=== PATIENT | male | born 1950 | race Caucasian/White ===

== ENCOUNTER 2022-04-16 10:22 | Outpatient (CLI) | payer MEDICARE ==
[2022-04-16 12:06] LABS: Anion Gap 13 mmol/L (10-20); BUN (Urea Nitrogen) 18 mg/dL (8.4-25.7); Calc. Creatinine Clearance 0 mL/min (70-130); Calcium 9.3 mg/dL (7.8-10.44); Carbon Dioxide 24 mmol/L (23-31); Chloride 104 mmol/L (98-107); Estimated GFR 67; Glucose 99 mg/dL (83-110); Potassium 4.6 mmol/L (3.5-5.1); Sodium 136 mmol/L (136-145)
[2022-04-16 12:12] LABS: Mean Corpuscular Hemoglobin 32.6 pg (27.0-33.0); Mean Corpuscular Volume 93.2 fl (81.2-95.1); Mean Platelet Volume 10.8 fl (7.4-10.4); Platelet Count 206 10x3/uL (150-450); Red Blood Cell (RBC) Count 4.29 10x6/uL (4.32-5.72); White Blood Cell (WBC) Count 9.7 10x3/uL (3.5-10.5)
== END 2022-04-16 10:23 | disposition home or self-care (01) ==
LOC: LABBT 10:22
PROVIDERS: ATTEND Neurological Surgery
DX: Z01.818 Encounter for other preprocedural examination (principal); M54.16 Radiculopathy, lumbar region
CPT/HCPCS: 80048; 85027; 93005; 93010

== ENCOUNTER 2022-04-23 07:14 | Observation (INO) | payer MEDICARE ==
[2022-04-19 14:47] VITALS: BMI 35.5
[2022-04-23] MEDS ORDERED: CEFAZOLIN 2 GM VIAL ONE (08:26)
[2022-04-23] MEDS ORDERED: Lidocaine 1% MPF 2 ML VIAL ONE (08:26)
[2022-04-23] MEDS ORDERED: Sodium Chloride 0.9% 100 ML ONE (08:27)
[2022-04-23] MEDS ORDERED: Fentanyl 250 MCG/5 ML VIAL ONE (09:39)
[2022-04-23] MEDS ORDERED: Vancomycin 1 GM VIAL ONE (09:47)
[2022-04-23] MEDS ORDERED: SUGAMMADEX SODIUM 200 MG/2 ML VIAL ONE (09:48)
[2022-04-23] MEDS ORDERED: ePHEDrine 50 MG/ML VIAL ONE (10:41)
[2022-04-23] MEDS ORDERED: Ondansetron PF 4 MG/2 ML Vial ONE (10:41)
[2022-04-23] MEDS ORDERED: Dexamethasone 20 MG/5 ML VIAL ONE (10:41)
[2022-04-23] MEDS ORDERED: PROPOFOL 200 MG/20 ML VIAL ONE (10:41)
[2022-04-23] MEDS ORDERED: Rocuronium Bromide 10 MG/ML (10ML VIAL) ONE (10:41)
[2022-04-23] MEDS ORDERED: Mineral Oil Sterile 10 ML VIAL ONE (11:20)
[2022-04-23] MEDS ORDERED: Ondansetron PF 4 MG/2 ML Vial IVP PRN (11:40)
[2022-04-23] MEDS ORDERED: diphenhydrAMINE 25 MG CAP PO PRN (11:40)
[2022-04-23] MEDS ORDERED: Mag-Al 1200 mg/1200 mg/30 ML UDCUP PO PRN (11:40)
[2022-04-23] MEDS ORDERED: Cyclobenzaprine 10 MG TAB PO PRN (11:40)
[2022-04-23] MEDS ORDERED: Milk Of Magnesia 30 ML UDCUP PO PRN (11:40)
[2022-04-23] MEDS ORDERED: Promethazine 25 MG TAB PO PRN (11:40)
[2022-04-23] MEDS ORDERED: Morphine 2 MG/ML VIAL SLOW IVP PRN (11:40)
[2022-04-23] MEDS ORDERED: Dextrose 50% Abboject 50 ML SYRINGE SLOW IVP PRN (11:44)
[2022-04-23] MEDS ORDERED: Dextrose 5% in Water 1,000 ML IV PRN (11:44)
[2022-04-23] MEDS ORDERED: HYDROcodone/Acetaminophen 7.5/325 mg Tablet PO PRN ×2 (11:44)
[2022-04-23] MEDS ORDERED: HumaLOG 300 UNITS/3 ML VIAL SC PRN (11:44)
[2022-04-23] MEDS ORDERED: Promethazine HCl 25 MG/ML VIAL IM PRN (12:07)
[2022-04-23] MEDS ORDERED: Ondansetron HCl/PF 4 MG/2 ML Vial IVP PRN (12:07)
[2022-04-23] MEDS ORDERED: Tamsulosin HCl 0.4 MG CAP PO SCH (12:15)
[2022-04-23] MEDS ORDERED: Tamsulosin HCl 0.4 MG CAP ONE (12:29)
[2022-04-23] MEDS: traMADol HCl 50 MG TAB PO PRN ×2 (15:42→23:50)
[2022-04-23] MEDS: Sodium Chloride 0.9% 1,000 ML IV SCH (15:43)
[2022-04-23] MEDS: CEFAZOLIN 2 GM in Sodium Chloride 0.9% 100 ML IVPB SCH (17:24)
[2022-04-24] MEDS: CEFAZOLIN 2 GM in Sodium Chloride 0.9% 100 ML IVPB SCH (00:48)
[2022-04-24] MEDS: Sodium Chloride 0.9% 1,000 ML IV SCH (05:27)
[2022-04-24] MEDS: traMADol HCl 50 MG TAB PO PRN (05:29)
[2022-04-24] MEDS ORDERED: Levothyroxine Sodium 112 MCG TAB PO SCH (06:00)
[2022-04-24] MEDS ORDERED: Levothyroxine Sodium 25 MCG TAB PO SCH (06:00)
[2022-04-24] MEDS ORDERED: Tamsulosin HCl 0.4 MG CAP PO SCH (06:00)
[2022-04-24] MEDS ORDERED: Carvedilol 25 MG TAB PO SCH (08:00)
[2022-04-24 08:08] VITALS: BP 169/92; TEMP 97.9
[2022-04-24] MEDS ORDERED: Amlodipine 5 MG TAB PO SCH (09:00)
[2022-04-24] MEDS ORDERED: FLU VACC QS2022-23(65YR UP)/PF 240 MCG/0.7 ML SYRINGE IM ONE (09:00)
[2022-04-24] MEDS ORDERED: Ramipril 5 MG CAP PO SCH (09:00)
== END 2022-04-24 09:17 | disposition home or self-care (01) ==
LOC: SDC 07:14 → T4-B 15:07
PROVIDERS: ADMIT Neurological Surgery; ATTEND Neurological Surgery
PROC: 01NB0ZZ Release Lumbar Nerve, Open Approach (ICD-10-PCS; principal; 2022-04-23)
DX: M48.062 Spinal stenosis, lumbar region with neurogenic claudication (principal); M54.16 Radiculopathy, lumbar region; I10 Essential (primary) hypertension; E78.5 Hyperlipidemia, unspecified; I25.10 Atherosclerotic heart disease of native coronary artery without angina pectoris; G47.30 Sleep apnea, unspecified; E03.9 Hypothyroidism, unspecified; E66.9 Obesity, unspecified; Z68.35 Body mass index [BMI] 35.0-35.9, adult; Z79.4 Long term (current) use of insulin; Z79.620 Long term (current) use of immunosuppressive biologic; Z79.84 Long term (current) use of oral hypoglycemic drugs; Z79.890 Hormone replacement therapy; Z79.899 Other long term (current) drug therapy; Z95.1 Presence of aortocoronary bypass graft; Z95.5 Presence of coronary angioplasty implant and graft; Z98.1 Arthrodesis status; Z98.890 Other specified postprocedural states; Z20.822 Contact with and (suspected) exposure to COVID-19
CPT/HCPCS: 63047; 82962 ×2; U0003; U0005; 36416; J1100; J1815; J2405; J2704; J3010; J3370; J3490; J7050

== ENCOUNTER 2022-07-25 15:37 | Outpatient (CLI) | payer MEDICARE | END 2022-07-25 15:38 | disposition home or self-care (01) | LOC: RAD 15:37 | PROVIDERS: ATTEND Neurological Surgery | DX: M48.062 Spinal stenosis, lumbar region with neurogenic claudication (principal); M47.816 Spondylosis without myelopathy or radiculopathy, lumbar region | CPT/HCPCS: 72120 ==